=== PATIENT | male | born 1990 ===

== ENCOUNTER 2021-01-04 15:37 | Emergency (ER) | payer SELFPAY ==
[~2021-01-04] VITALS: Ht 167.6 cm; Wt 90.7 kg
[2021-01-04 18:58] VITALS: BP 138/78
== END 2021-01-04 19:09 | disposition home or self-care (01) ==
LOC: ER 15:37
DX: R42 Dizziness and giddiness (principal); R51.9 Headache, unspecified; M79.605 Pain in left leg; M54.2 Cervicalgia; W10.9XXA Fall (on) (from) unspecified stairs and steps, initial encounter; Y93.89 Activity, other specified; Y92.89 Other specified places as the place of occurrence of the external cause; Y99.8 Other external cause status
CPT/HCPCS: 70450; 73502; 73590